=== PATIENT | male | born 1970 | race Caucasian/White ===

== ENCOUNTER 2022-05-22 05:09 | Day surgery (SDC) | payer BC ==
[2022-05-19 10:33] LABS: BASOPHILS # (AUTO) 0.1 X10'3 (0-0.2); BASOPHILS % (AUTO) 0.7 % (0-1); EOSINOPHILS # (AUTO) 0.1 X10'3 (0-0.9); EOSINOPHILS % (AUTO) 1.1 % (0-6); LYMPHOCYTES # (AUTO) 1.9 X10'3 (1.1-4.8); LYMPHOCYTES % (AUTO) 26.1 % (21-51); MEAN CORPUSCULAR HEMOGLOBIN 32.4 PG (27.0-31.0); MEAN CORPUSCULAR HGB CONC 33.6 g/dL (33.0-36.5); MEAN CORPUSCULAR VOLUME 96.5 FL (78-98); MEAN PLATELET VOLUME 7.4 FL (7.4-10.4); MONOCYTES # (AUTO) 0.6 X10'3 (0-0.9); MONOCYTES % (AUTO) 7.5 % (2-12); NEUTROPHILS # (AUTO) 4.8 X10'3 (1.8-7.7); NEUTROPHILS % (AUTO) 64.6 % (42-75); PRE OP HEMATOCRIT 42.9 % (42.0-52.0); PRE OP HEMOGLOBIN 14.4 g/dL (14.0-17.9); PRE OP PLATELET COUNT 274 X10'3 (140-440); RED BLOOD COUNT 4.45 X10'6 (4.70-6.10); RED CELL DISTRIBUTION WIDTH 13.8 % (11.5-14.5)
[2022-05-19 10:47] LABS: ALBUMIN/GLOBULIN RATIO 1.1 (1.1-1.5); ALKALINE PHOSPHATASE 95 IU/L (46-116); BLOOD UREA NITROGEN 21 MG/DL (7-18); BUN/CREATININE RATIO 17.5 (5.4-32.0); CALCIUM 8.9 MG/DL (8.5-10.1); CHLORIDE 106 MMOL/L (99-107); PRE OP ALT 52 U/L (30-65); PRE OP ANION GAP 6 (8-16); PRE OP AST 24 U/L (10-37); PRE OP BILIRUB, TOTAL 0.4 MG/DL (0.0-1.0); PRE OP GLUCOSE 101 MG/DL (70-104); PRE OP POTASSIUM 4.1 MMOL/L (3.4-5.1); PRE OP SODIUM 139 MMOL/L (135-145); TOTAL CARBON DIOXIDE 27.4 MMOL/L (24-32); TOTAL PROTEIN 7.5 G/DL (6.4-8.2); eGFR 64 ML/MIN
[2022-05-22] VITALS (8 sets, daily range): BP systolic 124–139; BP diastolic 87–103
[~2022-05-22] VITALS: Ht 180.3 cm; Wt 127.5 kg
[~2022-05-22 05:09] MED LIST: LISI10TA27 PO; SERT-434 PO; ringers solution, lacted 1,000 ML IV SCH
[2022-05-22] MEDS ORDERED: clindamycin-Cleocin 900mg/D5W 50 ML IV ONE (05:30)
[2022-05-22] MEDS ORDERED: famotidine 20mg tablet PO ONE (05:30)
[2022-05-22] MEDS ORDERED: LIDOcaine 1% 30ml preserv. free vial ONE (06:45)
[2022-05-22] MEDS ORDERED: BUPIVACAINE liposomal/PF 13.3 MG/ML vial IM ONE (06:45)
[2022-05-22] MEDS ORDERED: BUPIVAcaine 0.5% inj/PF 60 ML ONE (06:45)
[2022-05-22] MEDS ORDERED: ondansetron/PF 4mg/2ml inj IV PRN (07:15)
[2022-05-22] MEDS ORDERED: proCHLORperazine 10 MG/2 ml inj IV PRN (07:15)
[2022-05-22] MEDS ORDERED: HYDROmorphone/PF 0.2 MG/ML SYRINGE IV PRN ×2 (07:15)
[2022-05-22] MEDS ORDERED: ketorolac trometh. 30mg/ml inj. IV ONE (07:15)
[2022-05-22] MEDS ORDERED: morphine 4 MG/ML inj SYRINge IV PRN (07:15)
[2022-05-22] MEDS ORDERED: acetaminophen 1,000mg/100ml IV 100 ML IV PRN (07:15)
[2022-05-22] MEDS ORDERED: morphine 2 MG/ML inj. syringe IV PRN (07:15)
[2022-05-22] MEDS ORDERED: ringers solution, lacted 1,000 ML IV SCH (07:15)
[2022-05-22] MEDS ORDERED: hydrALAZINE 20mg/ml inj. IV PRN (07:15)
[2022-05-22] MEDS ORDERED: labetalol 20mg/4ml (5mg/ml) syringe IV PRN (07:15)
[2022-05-22] MEDS ORDERED: sevoflurane 250ml liquid IH ONE (07:21)
[2022-05-22] MEDS ORDERED: fentaNYL /PF 50mcg/ml 5ml ampule ONE (07:27)
[2022-05-22] MEDS ORDERED: midazolam 1 mg/ML 2ml injection ONE (07:27)
[2022-05-22] MEDS ORDERED: BUPIVAcaine 0.5% inj/PF 30 ml vial IJ ONE (07:58)
[2022-05-22] MEDS ORDERED: rocuronium 10mg/ml inj IV ONE (08:34)
[2022-05-22] MEDS ORDERED: LIDOcaine 2% (20mg/ml) 5ml vial ONE (08:34)
[2022-05-22] MEDS ORDERED: propofol inj 20 ML IV ONE (08:34)
[2022-05-22] MEDS ORDERED: ondansetron/PF 4mg/2ml inj ONE (08:34)
[2022-05-22] MEDS ORDERED: dexamethasone sod phosphate 4mg/ml inj. ONE (08:34)
[2022-05-22] MEDS ORDERED: neostigmine methylsulfate 1 MG/ML 10ml vial ONE (08:42)
[2022-05-22] MEDS ORDERED: glycopyrrolate 0.2mg/ml inj ONE (08:42)
--- NOTE | 2022-05-22 08:55 | NUR ---
Received from OR via [facility] IN STABLE CONDITION , accompanied by Anesthesiologist and MIGRATORY GAME BIRD BIOLOGIST report given by MIGRATORY GAME BIRD BIOLOGIST AND Anesthesiolgist. Addendum: 05/22/22 at 0932 by Hallie Duarte RN Amended: Links added.
[2022-05-22] MEDS ORDERED: oxyCODONE/APAP 5-325mg tablet PO PRN (09:00)
--- NOTE | 2022-05-22 10:15 | NUR ---
PATIENT DISCHARGED FROM PACU IN STABLE CONDITION AFTER WRITTEN AND VERBAL DISCHARGE INSTRUCTIONS GIVEN. PATIENT GAVE VERBAL UNDERSTANDING OF INSTRUCTIONS GIVEN. PATIENT LEFT FACILITY VIA WHEELCHAIR WITH RN. Addendum: 05/22/22 at 1018 by Hallie Duarte RN Amended: Links added.
== END 2022-05-22 10:15 | disposition home or self-care (01) ==
LOC: PAS 05:09
PROVIDERS: ATTEND Surgery
DX: K42.9 Umbilical hernia without obstruction or gangrene (principal); G47.33 Obstructive sleep apnea (adult) (pediatric); I10 Essential (primary) hypertension; E66.9 Obesity, unspecified; Z68.39 Body mass index [BMI] 39.0-39.9, adult; F32.9 Major depressive disorder, single episode, unspecified; F41.9 Anxiety disorder, unspecified; Z87.442 Personal history of urinary calculi; Z88.2 Allergy status to sulfonamides; Z88.1 Allergy status to other antibiotic agents; Z79.899 Other long term (current) drug therapy
CPT/HCPCS: 36415; 49591; 64488; 80053; 82948; 85025; 93005; C1781; C9290; J0131; J1100; J1885; J2250; J2405; J2704; J2710; J3010; J3490; J7030; J7120; S0020; Z7506; Z7508; Z7512; A4215; A4618